=== PATIENT | male | born 1995 | race Caucasian/White ===

== ENCOUNTER 2017-10-10 16:44 | Emergency (ER) | payer BC ==
[2017-10-10 17:05] VITALS: BP 118/60
[2017-10-10] MEDS ORDERED: Ibuprofen TAB* 600 MG PO ONE (17:05)
--- NOTE | 2017-10-10 17:13 | UC ---
Hand/Wrist HPI - HPI Summary HPI Summary: Was replacing tire when hydraulic liam gave out and car came down on the right hand. Puncture wound Tetanus up to date. - History Of Current Complaint Chief Complaint: UCUpperExtremity Stated Complaint: RIGHT HAND INJURY Hx Obtained From: Patient Onset/Duration: Sudden Onset, Lasting Hours - 1, Still Present Severity Initially: Severe Severity Currently: Severe Pain Intensity: 7 Character Of Pain: Dull, Aching, Throbbing Aggravating Factor(s): Movement, Flexion Alleviating Factor(s): Ice Associated Signs And Symptoms: Positive: Swelling, Other - small wound Related History: Dominant Hand Right - Allergies/Home Medications Allergies/Adverse Reactions: Allergies Allergy/AdvReac Type Severity Reaction Status Date / Time No Known Allergies Allergy Verified 10/10/17 16:59 PMH/Surg Hx/FS Hx/Imm Hx Respiratory History: Asthma Other Neurological History: ADHD - Surgical History Surgical History: None - Family History Known Family History: Positive: Hypertension - Social History Occupation: Employed Full-time Lives: With Family Alcohol Use: None Substance Use Type: None Smoking Status (MU): Current Every Day Smoker Type: Cigarettes Amount Used/How Often: 5-6 PER DAY Length of Time of Smoking/Using Tobacco: 4-5 YRS Household Exposure Type: Cigarettes Cessation Counseling: Patient Advised to Stop - Immunization History Most Recent Tetanus Shot: UTD w/in 5 years Review of Systems Skin: Bruising Musculoskeletal: Arthralgia Is Patient Immunocompromised?: No All Other Systems Reviewed And Are Negative: Yes Physical Exam Triage Information Reviewed: Yes Appearance: Well-Appearing, Well-Nourished, Pain Distress - mild Vital Signs: Initial Vital Signs Temp 98.5 F 10/10/17 16:59 Pulse 87 10/10/17 16:59 Resp 16 10/10/17 16:59 BP 118/60 10/10/17 16:59 Pulse Ox 98 10/10/17 16:59 Vital Signs Reviewed: Yes Eyes: Positive: Conjunctiva Clear Neck exam: Normal Respiratory Exam: Normal Cardiovascular Exam: Normal Musculoskeletal: Positive: ROM Intact - with making a fist., Strength Limited @ - 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 Neurological Exam: Normal Psychological Exam: Normal Skin: Positive: Other - small open wound over the dorsal 4th metatarsal. Hand/Wrist Course/Dx - Differential Dx/Diagnosis Differential Diagnosis/HQI/PQRI: Contusion, Fracture, Puncture Wound, Sprain Provider Diagnoses: Contusion right hand. Abrasion right hand Discharge - Sign-Out/Discharge Documenting (check all that apply): Patient Departure - Discharge Plan Condition: Stable Disposition: HOME Patient Education Materials: Contusion in Adults (ED), Abrasion (ED) Referrals: Rosalie Bob MD [Primary Care Provider] - - Billing Disposition and Condition Condition: STABLE Disposition: Home
--- NOTE | 2017-10-10 17:58 | RAD ---
Indication: Right hand pain. INDICATION: Crush injury to the hand. 4 views of the right hand are reviewed. There is no fracture or dislocation with special attention paid to the fourth and fifth metacarpal. No other fractures are noted. The carpal bones are unremarkable. IMPRESSION: No fracture of the right hand is noted.
== END 2017-10-10 17:48 | disposition home or self-care (01) ==
LOC: UCCORT 16:44
DX: S60.511A Abrasion of right hand, initial encounter (principal); W20.8XXA Other cause of strike by thrown, projected or falling object, initial encounter; Y93.89 Activity, other specified; Y92.9 Unspecified place or not applicable; F17.210 Nicotine dependence, cigarettes, uncomplicated
CPT/HCPCS: 99202; A9270-GY; G0463